=== PATIENT | female | born 1965 | race Caucasian/White ===

== ENCOUNTER → 2018-07-09 06:32 | Day surgery (SDC) | payer OTHER ==
[~2018-07-09 06:32] MED LIST: Acetaminophen TAB* 325 MG ONE; Acetaminophen TAB* 325 MG PO PRN; Buffered Lidocaine 0.9% SYRIN* 5 ML/SYR SYRINGE INTRADERM ONE; Dexamethasone IV* 4 MG/ML 1 ML (4 MG) ONE; DiMENhydriNATE IV* 50 MG/ML VIAL IV PUSH PRN; DiMENhydriNATE IV* 50 MG/ML VIAL ONE; Famotidine IV* 10 MG/ML 2 ML (20 mg) IV ONE; Famotidine IV* 10 MG/ML 2 ML (20 mg) ONE; HYDROmorphone INJ1* 1 MG/ML SYRINGE IV PRN; Heparin VIAL(*) 5000 UNITS/ML VIAL (FIVE THOUSAND) ONE; Ketorolac INJ* 30 MG/ML 1 ML VIAL ONE; Lactated Ringers 1000 ML Bag* 1,000 ML IV SCH; Lidocaine 2% PF * 5 ML VIAL ONE; Midazolam* 1 MG/ML 5 ML VIAL (5 MG) ONE; Naloxone* 0.4 MG/ML 1 ML VIAL IV PRN; Ondansetron INJ* 2 MG/ML VIAL ONE; Propofol* 10 MG/ML 20 ML BTL ONE; fentaNYL* 50 MCG/ML 2 ML VIAL (100 MCG VIAL) ONE; oxyCODONE TAB* 5 MG TAB PO PRN
[2018-07-09 07:37] LABS: Hematocrit 38 % (35-47); Hemoglobin 13.2 g/dl (12.0-16.0); Mean Corpuscular HGB Conc 34 g/dl (31-36); Mean Corpuscular Hemoglobin 30 pg (27-31); Mean Corpuscular Volume 86 fL (80-97); Mean Platelet Volume 8.1 fL (7.4-10.4); Platelet Count 215 10^3/ul (150-450); Red Blood Count 4.45 10^6/ul (4.00-5.40); Red Cell Distribution Width 13 % (10.5-15); White Blood Count 5.6 10^3/ul (3.5-10.8)
[2018-07-09 11:39] VITALS: BP 126/67
--- NOTE | 2018-07-15 23:18 | OP ---
DATE OF OPERATION: 07/09/18 - [facility] DATE OF : 67 SURGEON: Rosette Young MD ANESTHESIA: General endotracheal. PRE-OP DIAGNOSIS: Menorrhagia. POST-OP DIAGNOSIS: Menorrhagia. OPERATIVE PROCEDURE: Hysteroscopy, dilation and curettage, and endometrial ablation with NovaSure. INDICATIONS: This patient is a 53-year-old 3, para 3, who was followed in the office with complaint of persistent menorrhagia. She had dysmenorrhea in addition to this. The patient had a substantial family history of DVT, so she was unwilling to use estrogen-containing medications or any other treatments that could potentially increase the risk of blood clot. Considering this, we decided to proceed with an endometrial ablation. Pelvic ultrasound was essentially normal. An endometrial biopsy in the office returned with benign endometrium. She was extensively counseled and consent was signed. FINDINGS: Normal-appearing uterine cavity other than fairly thick endometrium present. Both tubal ostia were visualized and there was no visible evidence of polyps or fibroids in the uterus. MATERIALS TO LAB: Endometrial curettings. COMPLICATIONS: None. DESCRIPTION OF PROCEDURE: The risks, benefits, and alternatives were described to the patient and informed consent was obtained. The patient was taken to the operating room with IV running, where general anesthesia was induced and found to be adequate. The patient was prepped and draped in the normal sterile fashion in the high lithotomy position in Matheus stirrups. A time-out was performed. The bladder was emptied. A bivalved speculum was placed in the vagina and a single-tooth tenaculum was placed on the anterior cervix. The uterus sounded to 8 cm. The cervix was then gently dilated using Hanks dilators until a diagnostic hysteroscope could be advanced through the cervix and into the uterine cavity. This was done with saline running. On careful inspection of the uterine cavity, there were no visible abnormalities present. The hysteroscope was removed. A curettage was performed with a medium Banjo curette and the curettings were collected on Telfa. The cavity length was measured at 4.5 cm. The NovaSure device was then advanced through the cervix and into the uterine cavity and opened. The cavity width measured at 2.8 cm and the power calculated to 69. Once there was a negative cavity assessment, the endometrial ablation was performed and this lasted 120 seconds. At that time, the device was removed. The hysteroscope was re-advanced into the uterine cavity with saline running and there appeared to be good ablation of the majority of the cavity. The hysteroscope was then removed and the procedure was discontinued. The tenaculum was removed from the cervix and there was good hemostasis present. The speculum was then removed and the patient was returned to the supine position. The patient tolerated the procedure well. Sponge, lap, and needle counts were correct x2. [id number]/[facility] #: [id number] [facility]
== END | disposition home or self-care (01) ==
LOC: OR 06:32
PROVIDERS: ATTEND Obstetrics & Gynecology
DX: N92.0 Excessive and frequent menstruation with regular cycle (principal); N94.5 Secondary dysmenorrhea; Z87.891 Personal history of nicotine dependence; E03.9 Hypothyroidism, unspecified
CPT/HCPCS: 36415; 81025; 85027; 88305; A9270-GY; J1100; J1240; J1644; J1885; J2250; J2405; J2704; J3010